=== PATIENT | female | born 1990 | race Caucasian/White ===

== ENCOUNTER → 2020-10-22 | Outpatient (CLI) | payer MEDICAID ==
--- NOTE | 2020-10-22 17:21 | KCIC ---
EXAM: ULTRASOUND ABDOMEN COMPLETE CLINICAL HISTORY: Reason: RIGHT UPPER QUADRANT PAIN / Spl. Instructions: / History: COMPARISON: None available. TECHNIQUE: Ultrasound of the upper abdomen was performed. FINDINGS: The visualized aorta, IVC within normal limits of dimension. The visualized pancreas grossly appears unremarkable. No evidence of gallstones. The liver measures 13.9 cm in length. The common bile duct m easures 2.2 mm in transverse dimension. The right kidney measures 12.1 x 5.7 x 5.5 cm. The left kidne y measures 11.5 x 4.3 x 1.8 cm . The spleen measures 12.0 cm. IMPRESSION: Unremarkable exam. Electronically signed by: Arsenio Meraz MD (10/22/2020 5:19 PM) [id number]
== END ==
LOC: KCIC US 14:46
PROVIDERS: ATTEND Family Medicine
DX: R10.11 Right upper quadrant pain (principal)
CPT/HCPCS: 76700

== ENCOUNTER → 2020-12-16 | Outpatient (CLI) | payer MEDICAID ==
[~2020-12-16] VITALS: Ht 175.3 cm; Wt 83.9 kg
[~2020-12-16] MED LIST: SINCALIDE 1.68 MCG in IV NORMAL SALINE 50ML 30 ML IV ONE
--- NOTE | 2020-12-16 12:58 | RAD ---
EXAM: HEPATOBILIARY SCINTIGRAPHY WITH GALLBLADDER EJECTION FRACTION CALCULATION. HISTORY: Abdominal pain/nausea. TECHNIQUE: 4.8 mCi technetium-99m Choletec were administered intravenously and scintigraphic images o f the abdomen obtained. After filling of the gallbladder, 1.68 mcg of sincalide were infused and the gallbladder ejection fraction calculated. FINDINGS: There is prompt hepatic clearance of tracer from the blood pool. There is homogeneous distr ibution throughout the liver. There is normal filling of the gallbladder and clearance into the bilia ry tree and small bowel. The gallbladder ejection fraction is 49% (normal >35%). IMPRESSION: 1. Normal gallbladder ejection fraction. Electronically signed by: Reece Sánchez MD (12/16/2020 12:55 PM) [id number]
== END ==
LOC: NM 10:04
PROVIDERS: ATTEND Internal Medicine Gastroenterology
DX: R10.11 Right upper quadrant pain (principal)
CPT/HCPCS: 78227; A9537; J2805